=== PATIENT | male | born 1950 | race Caucasian/White ===

== ENCOUNTER → 2016-09-15 | Outpatient (CLI) | payer OTHER ==
[~2016-09-15] MED LIST: ASPIR 8181 MG PO; BETAPACE80 MG PO; CARVEDILOL12.5 MG PO; CRESTOR20 MG PO; ELIQUIS5 MG PO; HUMULIN 70100 UNIT/1 SQ; HYDREA500 MG PO; IMDUR DPS30 MG PO; LANTUS100 UNITS/ SQ; LASIX80 MG PO; MELATONIN1 MG PO; NITROSTAT0.4 MG SL; PLAVIX75 MG PO; VASOTEC2.5 MG PO; ZOLOFT100 MG PO
--- NOTE | 2016-09-25 09:20 | SS ---
ADMIT: 09/15/2016 RM/LOC: [facility] MR#: [id number] [id number] [place] [id number] Sleep Study SEX: M AGE: 65 : 1950 STUDY DATE: 09/15/2016 REFERRING PHYSICIAN: Maurilio Hercules MD CLINICAL HISTORY: A 65-year-old male, body mass of 40.7, 67 inches tall, 263 pounds, who has symptoms of snoring, fatigue, daytime sleepiness, [place] Sleepiness Scale of 12, undergoing home sleep study for evaluation of obstructive sleep apnea. HOME SLEEP STUDY FINDINGS: RECORDING INFORMATION: Recording date 09/15/2016. Bedtime starts 9:00 p.m. Bedtime ends 5:12 a.m. Time in bed 8 hours 9 minutes. NOX-T3 home sleep study device was used. Good signal quality was noted. BREATHING: Emgt-nm-ugyxovyd obstructive sleep apnea with apnea-hypopnea index of 14.1. OXYGEN SATURATION: Average sleeping oxygen saturation 90%, minimum oxygen saturation 83%. CARDIAC: Average pulse is 70 beats per minute. BODY POSITION: The patient slept predominantly in the lateral position, brief time in supine position during the study. IMPRESSION: Ubuc-ti-rvyqbewa obstructive sleep apnea with apnea of 14.1. RECOMMENDATIONS: Recommend in-lab CPAP titration. Recommend losing weight, avoiding sedatives or alcohol, refrain from driving if excessively sleepy. Recommend avoiding sleeping in supine position. Clinical correlation needed. CPAP titration is recommended. Rashi Cortes MD/ james JOB #: [id number] CC: Nikunj Winters MD, Attending Physician Cullen Cheek MD, Family Physician Maurilio Hercules MD
== END | disposition home or self-care (01) ==
LOC: CARD 12:45
DX: G47.33 Obstructive sleep apnea (adult) (pediatric) (principal)